=== PATIENT | male | born 1995 | race Caucasian/White ===

== ENCOUNTER 2025-09-10 18:38 | Emergency (ER) | payer MEDICAID, SELFPAY ==
[2025-09-10 18:42] VITALS: BP 146/94; PULSE 71; RESP 18; TEMP 36.7; O2SAT 97; BMI 22.4
[2025-09-10] MEDS: HYDROcodone-acetaminophen 7.5-325 mg Tablet 2 TAB PO (20:22)
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
== END 2025-09-10 20:41 | disposition home or self-care (01) ==
PROVIDERS: Emergency Provider Physician Assistant; PCP Family Medicine
DX: K04.7 Periapical abscess without sinus (principal)
CPT/HCPCS: 96372; 99284; J1100; J9999